=== PATIENT | female | born 1995 | race African-American/Black ===

== ENCOUNTER 2017-09-18 10:51 | Emergency (ER) | payer OTHER ==
[2017-09-18 10:57] VITALS: BP 104/72
[2017-09-18] MEDS ORDERED: PENICILLIN G BENZATHIN IM SUSP IM ONLY ONE (11:15)
--- NOTE | 2017-09-18 11:25 | ER Report ---
History and Physical Time Seen By MD: 10:55 Hx. of Stated Complaint: SORE THROAT SINCE YESTRDAY. VOMIT LAST NIGHT. NO CONGESTION. possible fever but pt did not take temperature. HPI/ROS CHIEF COMPLAINT: Sore throat HISTORY OF PRESENT ILLNESS: 22-year-old otherwise healthy female comes emergency department today with sore throat no dysphonia no dysphagia no trismus patient states that she had strep throat about 3 months ago was on antibiotics in the last 2 days is been noting strep throat and sore throat type sensation no cough subjective fevers without exudate or temperature no additional complaints noted REVIEW OF SYSTEMS: Respiratory: No cough, no dyspnea. Cardiovascular: No chest pain, no palpitations. Gastrointestinal: No vomiting, no abdominal pain. Musculoskeletal: No back pain. Remainder of the 14 system rev: Yes Allergies: Coded Allergies: No Known Drug Allergies (Unverified , 09/18/17) Reviewed Nurses Notes: Yes Old Medical Records Reviewed: Yes Constitutional Vital Sign - Last 24 Hours 09/18/17 10:57 Temp 97.9 Pulse 91 Resp 16 B/P (MAP) 104/72 Pulse Ox 95 O2 Delivery Room Air Physical Exam General appearance: Alert no distress. Respiratory: Chest is non tender, lungs are clear to auscultation. Cardiac: Regular rate and rhythm [ ] Throat examination patient has peritonsillar exudative changes bilaterally no uvular deviation no trismus mild some mandibular lymphadenopathy noted with exudative changes DIFFERENTIAL DIAGNOSIS: After history and physical exam differential diagnosis was considered for strep pharyngitis Medical Decision Making ED Course/Re-evaluation ED Course ED clinical course 22-year-old female with obvious clinical signs of strep pharyngitis including exudative changes submandibular lymphadenopathy subjective fever no cough we'll treat accordingly with IM Bicillin patient discharged with primary care follow-up Decision to Disposition Date: Sep 18, 2017 Decision to Disposition Time: 11:23 Depart Departure Latest Vital Signs Vital Signs Date Time Temp Pulse Resp B/P (MAP) Pulse Ox O2 Delivery O2 Flow Rate FiO2 09/18/17 10:57 97.9 91 16 104/72 95 Room Air Impression: Primary Impression: Strep pharyngitis Condition: Improved Disposition: HOME OR SELF-CARE Referrals: KARYNA MADERA 5 Days Patient Instructions: Strep Throat (DC) CAMILO ROSE MD Sep 18, 2017 11:24
== END 2017-09-18 11:41 | disposition home or self-care (01) ==
LOC: ER 11:10
DX: J02.0 Streptococcal pharyngitis (principal)
CPT/HCPCS: 96372; 99282; J0561

== ENCOUNTER 2018-02-02 23:59 | Emergency (ER) | payer SELFPAY ==
--- NOTE | 2018-02-03 00:02 | ER Report ---
History and Physical Time Seen By MD: 00:01 HPI/VERONIQUE CHIEF COMPLAINT: Lower abdominal pain HISTORY OF PRESENT ILLNESS: 22-year-old female presents with severe acute lower abdominal pain. She describes a sharp. She notes abdominal bloating. She's had for several days. She has an IUD in place. She denies . She notes some irregular menstrual bleeding. Her last full menstrual period she thinks was in November. Patient notes no fever or chills. She notes no dysuria. She denies a history of ovarian cyst. She notes midline suprapubic pain radiating to her back. Patient denies history of endometriosis. REVIEW OF SYSTEMS: Respiratory: No cough, no dyspnea. Cardiovascular: No chest pain, no palpitations. Gastrointestinal: As above Musculoskeletal: No back pain. Allergies: Coded Allergies: No Known Drug Allergies (Unverified , 09/18/17) Home Meds Active Scripts Doxycycline Hyclate (DOXYCYCLINE HYCLATE) 100 Mg Capsule, 100 MG PO BID for infection, #14 CAPSULE Prov:JEREMIAH GAMA DO 02/03/18 Ondansetron (ZOFRAN ODT) 4 Mg Tab.rapdis, 4 MG PO every 6 hours PRN for NAUSEA/VOMITING, #10 TAB TAKE 1 TABLET BY MOUTH EVERY 12 HOURS Prov:JEREMIAH GAMA DO 02/03/18 Hydrocodone Bit/Acetaminophen (HYDROCODON-ACETAMINOPHEN 5-325) 1 Each Tablet, 1 EACH PO Q4-6H PRN for PAIN, #12 TAKE ONE TABLET BY MOUTH EVERY 4-6 HOURS NEEDED FOR PAIN Prov:JEREMIAH GAMA DO 02/03/18 Reported Medications Escitalopram Oxalate (ESCITALOPRAM OXALATE) 10 Mg Tablet, 5 MG PO QDAY, TAB 02/03/18 Reviewed Nurses Notes: Yes Old Medical Records Reviewed: Yes Constitutional Vital Sign - Last 24 Hours 02/03/18 02/03/18 02/03/18 02/03/18 00:03 00:14 00:29 00:30 Temp 97.5 Pulse 85 76 81 Resp 24 B/P (MAP) 137/82 117/80 (92) Pulse Ox 92 92 94 O2 Delivery Room Air 02/03/18 02/03/18 02/03/18 02/03/18 00:49 00:54 01:00 01:09 Pulse 81 76 72 B/P (MAP) 107/68 (81) Pulse Ox 94 95 02/03/18 02/03/18 01:14 01:19 Pulse 73 79 Pulse Ox 96 Intake and Output 02/02/18 02/02/18 02/03/18 15:00 23:00 07:00 Intake Total 1000 ml Balance 1000 ml Physical Exam General Appearance: The patient is alert, has no immediate need for airway protection and no current signs of toxicity. Vital signs stable, afebrile, p ulse ox normal, moderate distress Eyes: Pupils equal and round no injection. Respiratory: Chest is non tender, lungs are clear to auscultation. Cardiac: regular rate and rhythm Gastrointestinal: Abdomen is soft, moderate lower abdominal pain with guarding but no rebound no masses, bowel sounds normal. Musculoskeletal: Neck: Neck is supple and non tender. No lymphadenopathy Extremities have full range of motion and are non tender. Skin: No rashes or lesions. DIFFERENTIAL DIAGNOSIS: After history and physical exam differential diagnosis was considered for abdominal pain in a female including but not limited to ovarian cyst, pelvic inflammatory disease, ovarian torsion, urinary tract infection, endometriosis, ovarian cyst rupture and appendicitis. Medical Decision Making Data Points Result Diagram: 02/03/18 0011 02/03/18 0011 Laboratory Hematology Test 02/03/18 00:03 02/03/18 00:11 Urine Color Straw Urine Clarity Clear Urine pH 5.0 pH (4.8-9.5) Urine Specific [place] 1.010 Urine Protein Negative mg/dL (NEGATIVE) Urine Glucose (UA) Negative mg/dL (NEGATIVE) Urine Ketones Trace mg/dL (NEGATIVE) Urine Blood Negative (NEGATIVE) Urine Nitrite Negative (NEGATIVE) Urine Bilirubin Negative (NEGATIVE) Urine Urobilinogen Negative mg/dL (0.2-1.9) Urine Leukocyte Esterase Negative (NEGATIVE) Urine RBC 1 /HPF (0-2/HPF) Urine WBC 1 /HPF (0-5/HPF) Urine Squamous Epithelial Cells Few /LPF (</=FEW) Urine Bacteria Negative /HPF (NONE-FEW) Urine Mucus None /HPF (NONE-FEW) Urine HCG, Qualitative Negative (NEGATIVE) Red Blood Count 5.37 M/uL (4.17-5.56) Mean Corpuscular Volume 78.5 fL (80.0-96.0) Mean Corpuscular Hemoglobin 27.3 pg (26.0-33.0) Mean Corpuscular Hemoglobin Concent 34.7 g/dL (32.0-36.0) Red Cell Distribution Width 13.1 % (11.5-14.5) Mean Platelet Volume 8.0 fL (7.2-11.1) Neutrophils (%) (Auto) 61.1 % (39.4-72.5) Lymphocytes (%) (Auto) 30.0 % (17.6-49.6) Monocytes (%) (Auto) 7.0 % (4.1-12.4) Eosinophils (%) (Auto) 1.2 % (0.4-6.7) Basophils (%) (Auto) 0.7 % (0.3-1.4) Nucleated RBC Relative Count (auto) 0.1 /100WBC Neutrophils # (Auto) 7.1 K/uL (2.0-7.4) Lymphocytes # (Auto) 3.5 K/uL (1.3-3.6) Monocytes # (Auto) 0.8 K/uL (0.3-1.0) Eosinophils # (Auto) 0.1 K/uL (0.0-0.5) Basophils # (Auto) 0.1 K/uL (0.0-0.1) Nucleated RBC Absolute Count (auto) 0.02 K/uL Sodium Level 137 mmol/L (137-145) Potassium Level 3.8 mmol/L (3.5-5.0) Chloride Level 103 mmol/L (98-107) Carbon Dioxide Level 18 mmol/L (22-31) Blood Urea Nitrogen 16 mg/dl (7-18) Creatinine 0.90 mg/dl (0.52-1.04) Glomerular Filtration Rate Calc > 60.0 Random Glucose 86 mg/dl (75-110) Calcium Level 9.4 mg/dl (8.4-10.2) Total Bilirubin 0.2 mg/dl (0.2-1.3) Aspartate Amino Transf (AST/SGOT) 16 U/L (0-35) Alanine Aminotransferase (ALT/SGPT) 30 U/L (0-56) Alkaline Phosphatase 52 U/L (0-126) Total Protein 7.8 g/dl (6.3-8.2) Albumin 4.3 g/dl (3.5-5.0) Amylase Level 71 U/L (0-110) Lipase 126 U/L (23-300) Chemistry Test 02/03/18 00:03 02/03/18 00:11 Urine Color Straw Urine Clarity Clear Urine pH 5.0 pH (4.8-9.5) Urine Specific [place] 1.010 Urine Protein Negative mg/dL (NEGATIVE) Urine Glucose (UA) Negative mg/dL (NEGATIVE) Urine Ketones Trace mg/dL (NEGATIVE) Urine Blood Negative (NEGATIVE) Urine Nitrite Negative (NEGATIVE) Urine Bilirubin Negative (NEGATIVE) Urine Urobilinogen Negative mg/dL (0.2-1.9) Urine Leukocyte Esterase Negative (NEGATIVE) Urine RBC 1 /HPF (0-2/HPF) Urine WBC 1 /HPF (0-5/HPF) Urine Squamous Epithelial Cells Few /LPF (</=FEW) Urine Bacteria Negative /HPF (NONE-FEW) Urine Mucus None /HPF (NONE-FEW) Urine HCG, Qualitative Negative (NEGATIVE) White Blood Count 11.6 k/uL (4.5-11.0) Red Blood Count 5.37 M/uL (4.17-5.56) Hemoglobin 14.6 g/dL (12.0-16.0) Hematocrit 42.2 % (34.0-47.0) Mean Corpuscular Volume 78.5 fL (80.0-96.0) Mean Corpuscular Hemoglobin 27.3 pg (26.0-33.0) Mean Corpuscular Hemoglobin Concent 34.7 g/dL (32.0-36.0) Red Cell Distribution Width 13.1 % (11.5-14.5) Platelet Count 275 K/uL (150-450) Mean Platelet Volume 8.0 fL (7.2-11.1) Neutrophils (%) (Auto) 61.1 % (39.4-72.5) Lymphocytes (%) (Auto) 30.0 % (17.6-49.6) Monocytes (%) (Auto) 7.0 % (4.1-12.4) Eosinophils (%) (Auto) 1.2 % (0.4-6.7) Basophils (%) (Auto) 0.7 % (0.3-1.4) Nucleated RBC Relative Count (auto) 0.1 /100WBC Neutrophils # (Auto) 7.1 K/uL (2.0-7.4) Lymphocytes # (Auto) 3.5 K/uL (1.3-3.6) Monocytes # (Auto) 0.8 K/uL (0.3-1.0) Eosinophils # (Auto) 0.1 K/uL (0.0-0.5) Basophils # (Auto) 0.1 K/uL (0.0-0.1) Nucleated RBC Absolute Count (auto) 0.02 K/uL Glomerular Filtration Rate Calc > 60.0 Calcium Level 9.4 mg/dl (8.4-10.2) Total Bilirubin 0.2 mg/dl (0.2-1.3) Aspartate Amino Transf (AST/SGOT) 16 U/L (0-35) Alanine Aminotransferase (ALT/SGPT) 30 U/L (0-56) Alkaline Phosphatase 52 U/L (0-126) Total Protein 7.8 g/dl (6.3-8.2) Albumin 4.3 g/dl (3.5-5.0) Amylase Level 71 U/L (0-110) Lipase 126 U/L (23-300) Urinalysis Test 02/03/18 00:03 Urine Color Straw Urine Clarity Clear Urine pH 5.0 pH (4.8-9.5) Urine Specific [place] 1.010 Urine Protein Negative mg/dL (NEGATIVE) Urine Glucose (UA) Negative mg/dL (NEGATIVE) Urine Ketones Trace mg/dL (NEGATIVE) Urine Blood Negative (NEGATIVE) Urine Nitrite Negative (NEGATIVE) Urine Bilirubin Negative (NEGATIVE) Urine Urobilinogen Negative mg/dL (0.2-1.9) Urine Leukocyte Esterase Negative (NEGATIVE) Urine RBC 1 /HPF (0-2/HPF) Urine WBC 1 /HPF (0-5/HPF) Urine Squamous Epithelial Cells Few /LPF (</=FEW) Urine Bacteria Negative /HPF (NONE-FEW) Urine Mucus None /HPF (NONE-FEW) Urine HCG, Qualitative Negative (NEGATIVE) ED Course/Re-evaluation Clinical Indication for ER IV: Hydration, IV Access ED Course Patient admitted to an examination room. H&P was done. The differential diagnosis was considered. On clinical examination. Patient has an acute abdomen with tenderness in both lower quadrants with guarding but no rebound. She has an IUD in place. She notes no vaginal discharge other than some irregular menstrual bleeding. She states she is monogamous with her partner. Patient's diagnostic studies show normal white blood cell count 11,600 without left shift. test is negative. Urinalysis is unremarkable. A she'll be treated for presumed PID. GC, chlamydia will be added to urinalysis. Patient be given Rocephin, Zithromax and be discharged on doxycycline 100 mg by mouth twice a day. She's given a prescription for Lortab and Zofran. She is given prescription blank for an outpatient ultrasound order hopefully to be completed later today. She is advised to follow-up with [facility] in 2-4 days. Decision to Disposition Date: Feb 03, 2018 Decision to Disposition Time: 00:55 Depart Departure Latest Vital Signs Vital Signs Date Time Temp Pulse Resp B/P (MAP) Pulse Ox O2 Delivery O2 Flow Rate FiO2 02/03/18 01:19 79 02/03/18 01:14 96 02/03/18 01:00 107/68 (81) 02/03/18 00:03 97.5 24 Room Air Impression: Primary Impression: Lower abdominal pain Additional Impressions: IUD (intrauterine device) in place Pelvic inflammatory disease Condition: Improved Disposition: HOME OR SELF-CARE Referrals: SAVANAH DEVRIES MD OZARKEVERETTE MD New Scripts Doxycycline Hyclate (DOXYCYCLINE HYCLATE) 100 Mg Capsule 100 MG PO BID for infection, #14 CAPSULE Prov: JEREMIAH GAMA DO 02/03/18 Ondansetron (ZOFRAN ODT) 4 Mg Tab.rapdis 4 MG PO every 6 hours PRN for NAUSEA/VOMITING, #10 TAB TAKE 1 TABLET BY MOUTH EVERY 12 HOURS Prov: JEREMIAH GAMA DO 02/03/18 Hydrocodone Bit/Acetaminophen (HYDROCODON-ACETAMINOPHEN 5-325) 1 Each Tablet 1 EACH PO Q4-6H PRN for PAIN, #12 TAKE ONE TABLET BY MOUTH EVERY 4-6 HOURS NEEDED FOR PAIN Prov: JEREMIAH GAMA DO 02/03/18 Patient Instructions: Acute Abdominal Pain (ED), Pelvic Inflammatory Disease (ED) Additional Instructions: Take ibuprofen 200 mg 3-4 tablets 3 times a day with food Take doxycycline 100 mg twice daily with a large glass of water Make a follow-up appointment with [facility] in 2-4 days, information for [facility] doctors was provided. Problem Qualifiers JEREMIAH GAMA DO Feb 03, 2018 00:02
[2018-02-03] MEDS ORDERED: NS(*) 0.9% 1000 ML BAG 1,000 ML IV ONE (00:15)
[2018-02-03] MEDS ORDERED: ONDANSETRON 4 MG/2 ML VIAL IVP ONE (00:15)
[2018-02-03] MEDS ORDERED: fentaNYL CITR 100 MCG/2 ML AMP IVP ONE (00:15)
[2018-02-03] MEDS ORDERED: ESCI10TA8 PO (00:16)
[2018-02-03 00:26] LABS: PLATELET COUNT, AUTOMATED 275 K/uL (150-450)
[2018-02-03] MEDS ORDERED: AZITHROMYCIN 250 MG TAB PO ONE (00:55)
[2018-02-03] MEDS ORDERED: cefTRIAXone 1 GM VIAL IVP ONE (00:55)
[2018-02-03] MEDS ORDERED: KETOROLAC 30 MG/ML VIAL IVP ONE (00:55)
[2018-02-03] MEDS ORDERED: ONDA4TAB PO (00:58)
[2018-02-03] MEDS ORDERED: DOXY-181 PO (00:58)
[2018-02-03] MEDS ORDERED: LOR5/325 PO (00:58)
[2018-02-03 01:00] VITALS: BP 107/68
[2018-02-03] MEDS ORDERED: ACET/HYDROC 5/325MG TH ER ONLY 2 TAB/BOTTLE PO ONE (01:20)
[2018-02-03] MEDS ORDERED: ONDANSETRON 4 MG ODT TH SL ONE (01:20)
== END 2018-02-03 01:36 | disposition home or self-care (01) ==
LOC: ER 02-03 00:04
DX: R10.30 Lower abdominal pain, unspecified (principal); N73.9 Female pelvic inflammatory disease, unspecified; Z97.5 Presence of (intrauterine) contraceptive device
CPT/HCPCS: 81001; 81025; 82150; 83690; 85025; 87491; 87591; 96361; 96374; 96375; 99284; J0696; J1885; J2405; J3010; J7030; Q0144; S0119; 82040; 82247; 82310; 82374; 82435; 82565; 82947; 84075; 84132; 84155; 84295; 84450; 84460; 84520

== ENCOUNTER → 2018-02-03 | Outpatient (CLI) | payer SELFPAY ==
[~2018-02-03] MED LIST: DOXY-181 PO; ESCI10TA8 PO; LOR5/325 PO; ONDA4TAB PO
--- NOTE | 2018-02-03 16:18 | RADIOLOGY IMAGING REPORT ---
FACILITY: [facility] PATIENT NAME: Tawanda Terrell : 1995 MR: [id number] V: [id number] EXAM DATE: ORDERING PHYSICIAN: JEREMIAH GAMA TECHNOLOGIST: Location: [facility] Patient: Tawanda Terrell : 1995 Visit/Account:[id number] Date of Sevice: 02/03/2018 PELVIC HISTORY: Abdominal pain TECHNIQUE: There has been satisfactory transabdominal/transvaginal ultrasonic evaluation of the pelvi s. COMPARISON: None. FINDINGS: Uterus: measures: 6.9 cm length x 4.0 cm AP x 4.5 cm transverse. Myometrium: Unremarkable. Endometrium: IUD in place; endometrial thickness 6 mm. Cervix: Grossly negative. Ovaries: Right - complex right-sided ovarian cyst measuring 3.5 x 3.3 x 2.9 cm. Left - normal in size, contour and echotexture Blood flow is documented in each ovary by duplex Doppler ultrasound. Adnexa: Grossly unremarkable. Free pelvic fluid: Moderate. Bladder: Empty IMPRESSION: 1. 3.5 cm complex right-sided ovarian lesion likely representing a hemorrhagic cyst. In low risk pa tients no further follow-up is necessary. 2. IUD appropriately located within the endometrium. 3. Moderate fluid within the cul-de-sac. Report Dictated By: James Murillo DO at 02/03/2018 4:08 PM Report E-Signed By: James Murillo DO at 02/03/2018 4:13 PM [id number]
== END ==
LOC: US 15:02
PROVIDERS: ATTEND Emergency Medicine
DX: N83.201 Unspecified ovarian cyst, right side (principal); Z97.5 Presence of (intrauterine) contraceptive device
CPT/HCPCS: 76856